=== PATIENT | female | born 1990 | race Caucasian/White ===

== ENCOUNTER 2018-03-22 08:01 | Emergency (ER) | payer BC ==
[~2018-03-22] VITALS: Ht 167.6 cm; Wt 97.5 kg
[~2018-03-22 08:01] MED LIST: AMOXICILLIN500 M1 PO; AMOXIL 875 MG875 M1 PO; BITH CONTROL; BUSPIRONE HCL10 MG; CIPROFLOXACIN500 M3 OR; CIPROFLOXACIN500 M3 PO; CRYSELLE1 EACH; DOXYCYCLINE 10100 MG PO; MEDROLDOSEPACK PO; PHENTERMINE H37.5 MG; PREDNISONE 20 M20 M1 PO; PYRIDIUM200 MG PO; TRAMADOL 50 MG50 MG PO; TRINATE TABLET1 TAB PO; ZPAK PO
[2018-03-22] MEDS ORDERED: UNICOMPLEX M TA1 TA1 PO (08:11)
[2018-03-22] MEDS ORDERED: AUGMENTIN 500-1 EACH PO (08:46)
[2018-03-22] MEDS ORDERED: IBUPROFEN 800800 MG PO (08:46)
[2018-03-22] MEDS ORDERED: Magic Mouthwash PO (08:46)
[2018-03-22 09:03] VITALS: BP 135/92
== END 2018-03-22 09:04 | disposition home or self-care (01) ==
LOC: M.ERS 08:01
DX: J02.9 Acute pharyngitis, unspecified (principal); F41.9 Anxiety disorder, unspecified; F32.9 Major depressive disorder, single episode, unspecified

== ENCOUNTER 2019-12-05 08:50 | Emergency (ER) | payer BC ==
[~2019-12-05] VITALS: Ht 167.6 cm; Wt 105.7 kg
[~2019-12-05 08:50] MED LIST changes: +AUGMENTIN 500-1 EACH PO; +IBUPROFEN 800800 MG PO; +Magic Mouthwash PO; +UNICOMPLEX M TA1 TA1 PO
[2019-12-05] MEDS ORDERED: IBU800 MG PO (11:54)
[2019-12-05] MEDS ORDERED: FLEXERIL PO (11:54)
[2019-12-05 12:08] VITALS: BP 140/92
== END 2019-12-05 12:09 | disposition home or self-care (01) ==
LOC: M.ERS 08:50
DX: S12.9XXA Fracture of neck, unspecified, initial encounter (principal); M62.830 Muscle spasm of back; M54.6 Pain in thoracic spine; F41.9 Anxiety disorder, unspecified; Z90.89 Acquired absence of other organs; V43.52XA Car driver injured in collision with other type car in traffic accident, initial encounter; Y92.89 Other specified places as the place of occurrence of the external cause; Y93.89 Activity, other specified; Y99.8 Other external cause status